=== PATIENT | male | born 1965 | race African-American/Black ===

== ENCOUNTER 2017-02-25 15:54 | Inpatient (IN) | payer OTHER ==
[2017-02-25 17:59] VITALS: BMI 27.8
--- NOTE | 2017-02-25 18:52 | HP ---
CIWA Score - CIWA Score Nausea/Vomitin-Mild Nausea/No Vomiting Muscle Tremors: 4-Moderate,w/Arms Extend Anxiety: 4-Mod. Anxious/Guarded Agitation: 4-Moderately Restless Paroxysmal Sweats: 1-Minimal Palms Moist Orientation: 0-Oriented Tacttile Disturbances: 0-None Auditory Disturbances: 0-None Visual Disturbances: 0-None Headache: 1-Very Mild CIWA-Ar Total Score: 15 Admission ROS BHS - HPI Chief Complaint: WITHDRAWAL SX Allergies/Adverse Reactions: Allergies Allergy/AdvReac Type Severity Reaction Status Date / Time No Known Allergies Allergy Verified 02/25/17 18:09 History of Present Illness: 51 YEARS OLD YEARS OLD MALE WITH LONG HISTORY OF ALCOHOL COCAINE MARIJUANA DEPENDENCE DENIES MEDICAL ISSUE HAS BIPOLAR II IS ADMITTED TO DETOX FELL 02/21/17 MULTIPLE SKIN ABRASION LEFT ELBOW AND RIGHT FORE HEAD TREATED AT MAX MEADOWS, NEGATIVE CT HEAD Exam Limitations: No Limitations - Ebola screening Have you traveled outside of the country in the last 21 days: No Have you had contact with anyone from an Ebola affected area: No Have you been sick,other than usual withdrawal symptoms: No Do you have a fever: No - Review of Systems Constitutional: Chills, Changes in sleep, Weight Stable EENT: reports: No Symptoms Reported Respiratory: reports: No Symptoms reported Cardiac: reports: No Symptoms Reported GI: reports: Nausea, Poor Fluid Intake, Abdominal cramping : reports: No Symptoms Reported Musculoskeletal: reports: No Symptoms Reported Integumentary: reports: Bruising (LEFT ELBOW RIGHT FORE HEAD FELL 02/21 TREATED IN MAX MEADOWS NEGATIVE CT HEAD) Neuro: reports: Tremors Endocrine: reports: No Symptoms Reported Hematology: reports: No Symptoms Reported Psychiatric: reports: Judgement Intact, Orientated x3, Anxious, Depressed Other Systems: Reviewed and Negative Patient History - Patient Medical History Hx Anemia: No Hx Asthma: No Hx Chronic Obstructive Pulmonary Disease (COPD): No Hx Cancer: No Hx Cardiac Disorders: No Hx Congestive Heart Failure: No Hx Hypertension: No Hx Hypercholesterolemia: No Hx Pacemaker: No HX Cerebrovascular Accident: No Hx Seizures: No Hx Diabetes: No Hx Gastrointestinal Disorders: No Hx Liver Disease: No Hx Genitourinary Disorders: No Hx Sexually Transmitted Disorders: No Hx Renal Disease (ESRD): No Hx Thyroid Disease: No Hx Human Immunodeficiency Virus (HIV): No Hx Hepatitis C: No Hx Depression: No Hx Suicide Attempt: Yes ( 2013 ,over dosed on pills) Hx Bipolar Disorder: Yes Hx Schizophrenia: No - Patient Surgical History Past Surgical History: Yes Hx Neurologic Surgery: No Hx Cataract Extraction: No Hx Cardiac Surgery: No Hx Lung Surgery: No Hx Breast Surgery: No Hx Breast Biopsy: No Hx Abdominal Surgery: No Hx Appendectomy: No Hx Cholecystectomy: No Hx Genitourinary Surgery: No Hx Orthopedic Surgery: Yes (multiple fractured toes of the right foot, fx of the right ring finger) Anesthesia Reaction: No - PPD History Previous Implant?: Yes Documented Results: Positive w/proof Implanted On Prior R Admission?: No PPD to be Administered?: No - Smoking Cessation Smoking history: Former smoker Have you smoked in the past 12 months: No Aproximately how many cigarettes per day: 0 Hx Chewing Tobacco Use: No Initiated information on smoking cessation: No - Substance & Tx. History Hx Alcohol Use: Yes Hx Substance Use: Yes Substance Use Type: Alcohol, Cocaine, Marijuana Hx Substance Use Treatment: Yes - Substances Abused Alcohol Route: Oral Frequency: Daily Amount used: liquor- 2 pints. beer- 2 -25oz Age of first use: 12 Date of Last Use: 02/25/17 Cocaine Route: Smoking Frequency: Daily Amount used: 4 bags Age of first use: 22 Date of Last Use: 02/25/17 Marijuana/Hashish Route: Smoking Frequency: Daily Amount used: 1 bag Age of first use: 12 Date of Last Use: 02/25/17 Family Disease History - Family Disease History Family Disease History: Other: Father (), Brother Admission Physical Exam S - Vital Signs Vital Signs: Vital Signs - 24 hr 02/25/17 17:51 Temperature 98.6 F Pulse Rate 73 Respiratory 20 Rate Blood Pressure 129/75 - Physical General Appearance: Yes: Nourished, Appropriately Dressed, Mild Distress, Tremorous, Irritable, Sweating, Anxious HEENTM: Yes: Hearing grossly Normal, Normal ENT Inspection, Normocephalic, Normal Voice Respiratory: Yes: Chest Non-Tender, Lungs Clear, Normal Breath Sounds, No Respiratory Distress, No Accessory Muscle Use Neck: Yes: Supple, Trachea in good position Breast: Yes: Breasts Symetrical Cardiology: Yes: Regular Rhythm, Regular Rate, S1, S2 Abdominal: Yes: Non Tender, Soft Genitourinary: Yes: Within Normal Limits Back: Yes: Normal Inspection Musculoskeletal: Yes: full range of Motion, Gait Steady Extremities: Yes: Normal Inspection, Normal Range of Motion, Non-Tender, Tremors Neurological: Yes: Fully Oriented, Alert, Motor Strength 5/5, Normal Response, Depressed Affect Integumentary: Yes: Warm Lymphatic: Yes: Within Normal Limits - Diagnostic (1) Alcohol dependence with uncomplicated withdrawal Current Visit: Yes Status: Acute (2) Cocaine dependence, uncomplicated Current Visit: Yes Status: Chronic (3) Cannabis dependence, uncomplicated Current Visit: Yes Status: Chronic (4) Positive PPD, treated Current Visit: Yes Status: Resolved (5) Bipolar II disorder Current Visit: Yes Status: Suspected Cleared for Admission [facility] - Detox or Rehab [facility] Level of Care: Medically Managed Detox Regimen/Protocol: Librium [facility] Breath Alcohol Content Breath Alcohol Content: 0 Urine Drug Screen - Results Drug Screen Negative: No Urine Drug Screen Results: THC-Marijuana, LANE-Cocaine, BZO-Benzodiazepines
[2017-02-25] MEDS ORDERED: MENTHOL/PHENOL 1 EACH UD MM PRN (18:57)
[2017-02-25] MEDS ORDERED: MAG HYDROX/AL HYDROX/SIMETH 30 ML UNIT-DOSE CUP PO PRN (18:57)
[2017-02-25] MEDS ORDERED: MAGNESIUM HYDROX 2400MG/30ML ORAL SUSPENSION 30 ML CUP PO PRN (18:57)
[2017-02-25] MEDS ORDERED: diphenhydrAMINE HCL 50 MG CAPSULE PO PRN (18:57)
[2017-02-25] MEDS ORDERED: LOPERAMIDE HCL 2 MG CAPSULE PO PRN (18:57)
[2017-02-25] MEDS ORDERED: hydrOXYzine PAMOATE 50 MG CAPSULE (FP) PO PRN (18:57)
[2017-02-25] MEDS ORDERED: MAGNESIUM CITRATE 300 ML BOTTLE PO PRN (18:57)
[2017-02-25] MEDS ORDERED: IBUPROFEN 400 MG TABLET (FP) PO PRN (18:57)
[2017-02-25] MEDS ORDERED: chlordiazePOXIDE HCL 25 MG CAPSULE PO PRN (18:57)
[2017-02-25] MEDS ORDERED: guaiFENesin/D-METHORPHAN HB 10 ML UNIT-DOSE CUPS PO PRN (18:57)
[2017-02-25] MEDS ORDERED: ACETAMINOPHEN 325 MG TABLET (FP) PO PRN (18:57)
[2017-02-25] MEDS ORDERED: P-EPHED 60MG/TRIPROLIDI 2.5MG TABLET PO PRN (18:57)
[2017-02-25] MEDS: chlordiazePOXIDE HCL 25 MG CAPSULE PO SCH (22:46)
[2017-02-25] MEDS: THIAMINE HCL 100 MG TABLET (FP) PO SCH (22:46)
[2017-02-26] MEDS: chlordiazePOXIDE HCL 25 MG CAPSULE PO SCH ×4 (05:43→22:37)
[2017-02-26] MEDS: PRENATAL VITAMINS W/ FOLIC ACID TABLET (FP) PO SCH (10:27)
[2017-02-26 10:29] LABS: MCH 30.5 pg (25.7-33.7); MCHC 33.8 g/dl (32.0-35.9); MEAN CELL VOLUME 90.2 fl (80-96); MEAN PLT VOLUME 8.5 fl (7.5-11.1); PLATELET COUNT 235 K/MM3 (134-434); RDW 14.3 % (11.9-15.9); WHITE BLOOD COUNT 5.8 K/mm3 (4.0-10.0)
[2017-02-26 11:00] LABS: ALBUMIN 3.3 g/dl (3.4-5.0); ALK PHOS 49 U/L (45-117); ANION GAP 8 (8-16); BILIRUBIN,TOTAL 0.5 mg/dL (0.2-1.0); CALCIUM 8.9 mg/dL (8.5-10.1); CO2 29 mmol/L (21-32); COCKROFT - GAULT 94.32; CREATININE 1.1 mg/dL (0.7-1.3); GLUCOSE,RANDOM 81 mg/dL (74-106); SGOT/AST 28 U/L (15-37); SGPT/ALT 30 U/L (12-78); TOT PROT 6.2 g/dl (6.4-8.2)
[2017-02-26] MEDS: SERTRALINE HCL 50 MG TABLET (FP) PO SCH (12:18)
[2017-02-26] MEDS: BENZTROPINE MESYLATE 1 MG TABLET (FP) PO SCH ×2 (12:18→22:38)
[2017-02-26] MEDS: risperiDONE 1 MG TABLET (FP) PO SCH ×2 (12:18→22:37)
--- NOTE | 2017-02-26 13:49 | CONSULT ---
[facility] Psychiatric Consult - Data Date of interview: 02/26/17 Admission source: [facility] Identifying data: Readmission to [facility] for this 51 y/o AA male seeking detox treatment for alcohol,cocaine and marijuana (K2) dependence.Patient is single,a fahther of one,homeless,unemployed and supported on SSI benefits. Substance Abuse History: - Smoking Cessation. Smoking history: Former smoker. Have you smoked in the past 12 months: No. Aproximately how many cigarettes per day: 0. Hx Chewing Tobacco Use: No. Initiated information on smoking cessation: No. - Substance & Tx. History. Hx Alcohol Use: Yes. Hx Substance Use: Yes. Substance Use Type: Alcohol, Cocaine, Marijuana. Hx Substance Use Treatment: Yes. - Substances Abused. Alcohol. Route: Oral. Frequency: Daily. Amount used: liquor- 2 pints. beer- 2 -25oz. Age of first use: 12. Date of Last Use: 02/25/17. Cocaine. Route: Smoking. Frequency: Daily. Amount used: 4 bags. Age of first use: 22. Date of Last Use: 02/25/17. Marijuana/Hashish. Route: Smoking. Frequency: Daily. Amount used: 1 bag. Age of first use: 12. Date of Last Use: 02/25/17. Confirmed by patient. Medical History: Facial abrasions as a result of a recent fall in the streets () and a history of orthosurgery for multiple metatarsal fractures (right foot) / fracture of fourth finger (right hand). Psychiatric History: Patient admits to a history of multiple psychiatric hospitalizations ([facility]).Diagnosed with Schizoaffective Disorder.Mr Bazan declares that he uses emergency room settings as outlets for medications refills.Has no affiliation with a regular [employer] care provider.Patient states that he used to be prescribed zoloft 100 mg/day + depakote 1000 mg/hs + risperdal 2 mg/hs + cogentin 2 mg/hs.Non compliant for past three months (self-report).Now willing to get back to psychiatric care.Patient reports one suicide attempt ( 2013) via overdose with drugs/self-mutilation. Physical/Sexual Abuse/Trauma History: Patient denies. Additional Comment: Urine Drug Screen Results: THC-Marijuana, LANE-Cocaine, BZO- Benzodiazepines.Noted. Mental Status Exam - Mental Status Exam Alert and Oriented to: Time, Place, Person Cognitive Function: Good Patient Appearance: Unkempt, Disheveled Mood: Withdrawn, Irritable Affect: Mood Congruent Patient Behavior: Fatigued, Cooperative Speech Pattern: Clear Voice Loudness: Normal Thought Process: Goal Oriented Thought Disorder: Not Present Hallucinations: Denies Suicidal Ideation: Denies Homicidal Ideation: Denies Insight/Judgement: Poor Sleep: Fair Appetite: Good Muscle strength/Tone: Normal Gait/Station: Normal Psychiatric Findings - Problem List ([place] 1, 2,3) (1) Alcohol dependence with uncomplicated withdrawal Current Visit: Yes Status: Acute (2) Cannabis dependence, uncomplicated Current Visit: Yes Status: Acute (3) Cocaine dependence, uncomplicated Current Visit: Yes Status: Acute (4) Nicotine dependence Current Visit: Yes Status: Acute Qualifiers: Nicotine product type: cigarettes Substance use status: uncomplicated Qualified Code(s): F17.210 - Nicotine dependence, cigarettes, uncomplicated (5) Drug-induced mood disorder Current Visit: Yes Status: Acute (6) Schizoaffective disorder Current Visit: Yes Status: Acute (7) Positive PPD, treated Current Visit: Yes Status: Resolved - Initial Treatment Plan Initial Treatment Plan: Psychoeducation.Detoxification in progress.Medications : risperdal 1 mg po bid + zoloft 50 mg po daily + depakote 500 mg po hs + cogentin 0.5 mg po bid.Side effects/benefits of each drug are discussed with the patient.He is made aware of the potential for dystonias,dyskinesias, akathisia,akinesia,sexual impotence,galactorrhea/gynecomastia from the use of risperdal,liver dysfunction,blood dyscrasias with utilization of valproate, anticholinergic complicaions (cogentin),sexual dysfunction/suicidal ideation ( zoloft).Patient reports past history of good tolerability/favorable response to these medications.He agrees to resume this regimen.Observation.Will follow valproic acid level.Labs are reviewed.
--- NOTE | 2017-02-26 14:54 | PN ---
[facility] CIWA - CIWA Score Nausea/Vomitin-Mild Nausea/No Vomiting Muscle Tremors: 4-Moderate,w/Arms Extend Anxiety: 4-Mod. Anxious/Guarded Agitation: 2 Paroxysmal Sweats: 3 Orientation: 0-Oriented Tacttile Disturbances: 0-None Auditory Disturbances: 3-Moderate Harsh/Frighten Visual Disturbances: 0-None Headache: 0-None Present CIWA-Ar Total Score: 17 BHS Progress Note (SOAP) Subjective: Body Aches, Tremors, Sweating. Objective: PT. A & O X 3, OBSERVED AMBULATING ON UNIT. NO ACUTE DISTRESS. PT. DENIES CHEST PAIN. 02/26/17 14:52 Vital Signs Temperature 98.2 F 02/26/17 13:03 Pulse Rate 87 02/26/17 13:03 Respiratory Rate 18 02/26/17 13:03 Blood Pressure 133/81 02/26/17 13:03 O2 Sat by Pulse Oximetry (%) Laboratory Tests 02/26/17 02/26/17 02/26/17 07:00 07:00 07:00 WBC 5.8 RBC 4.42 Hgb 13.5 Hct 39.9 MCV 90.2 MCHC 33.8 RDW 14.3 Plt Count 235 MPV 8.5 Sodium 143 Potassium 4.2 Chloride 106 Carbon Dioxide 29 Anion Gap 8 BUN 16 Creatinine 1.1 Creat Clearance w eGFR > 60 Random Glucose 81 Calcium 8.9 Total Bilirubin 0.5 D AST 28 D ALT 30 D Alkaline Phosphatase 49 Total Protein 6.2 L Albumin 3.3 L Valproic Acid < 3.000 L LABS NOTED. Assessment: 02/26/17 14:53 WITHDRAWAL SYMPTOMS. Plan: CONTINUE DETOX. PSYCHIATRIST DR. ALFIE MD MADE AWARE OF VALPROIC ACID LEVEL.
--- NOTE | 2017-02-26 19:23 | EKG ---
Test Reason : Blood Pressure : / mmHG Vent. Rate : 051 BPM Atrial Rate : 051 BPM P-R Int : 142 ms QRS Dur : 088 ms QT Int : 472 ms P-R-T Axes : 039 005 001 degrees QTc Int : 435 ms SINUS BRADYCARDIA OTHERWISE NORMAL ECG WHEN COMPARED WITH ECG OF 25-FEB-2017 19:16, CRITERIA FOR SEPTAL INFARCT ARE NO LONGER PRESENT Confirmed by NAOMIE SERRA MD ([id number]) on 02/26/2017 7:22:49 PM Referred By: Confirmed By:NAOMIE SERRA MD
--- NOTE | 2017-02-26 19:23 | EKG ---
Test Reason : Blood Pressure : / mmHG Vent. Rate : 057 BPM Atrial Rate : 057 BPM P-R Int : 126 ms QRS Dur : 094 ms QT Int : 470 ms P-R-T Axes : 027 019 022 degrees QTc Int : 457 ms SINUS BRADYCARDIA SEPTAL INFARCT , AGE UNDETERMINED ABNORMAL ECG NO PREVIOUS ECGS AVAILABLE Confirmed by NAOMIE SERRA MD ([id number]) on 02/26/2017 7:23:15 PM Referred By: Confirmed By:NAOMIE SERRA MD
[2017-02-26] MEDS: THIAMINE HCL 100 MG TABLET (FP) PO SCH (22:37)
[2017-02-26] MEDS: DIVALPROEX SODIUM 250 MG TABLET E.C. (FP) PO SCH (22:37)
[2017-02-27] MEDS: chlordiazePOXIDE HCL 25 MG CAPSULE PO SCH ×3 (05:43→17:16)
[2017-02-27] MEDS: PRENATAL VITAMINS W/ FOLIC ACID TABLET (FP) PO SCH (10:11)
[2017-02-27] MEDS: risperiDONE 1 MG TABLET (FP) PO SCH ×2 (10:11→22:16)
[2017-02-27] MEDS: SERTRALINE HCL 50 MG TABLET (FP) PO SCH (10:12)
[2017-02-27] MEDS: BENZTROPINE MESYLATE 1 MG TABLET (FP) PO SCH ×2 (10:57→22:16)
[2017-02-27 13:52] LABS: URINE APPEARANCE CLEAR; URINE BILIRUBIN NEGATIVE (NEGATIVE); URINE BLOOD NEGATIVE (NEGATIVE); URINE COLOR LTYELLOW; URINE GLUCOSE (UA) NEGATIVE (NEGATIVE); URINE KETONE NEGATIVE (NEGATIVE); URINE LEUK ESTERASE NEGATIVE (NEGATIVE); URINE NITRITE NEGATIVE (NEGATIVE); URINE PROTEIN NEGATIVE (NEGATIVE); URINE UROBILINOGEN NEGATIVE E.U./dl (0.2-1.0)
--- NOTE | 2017-02-27 14:34 | PN ---
S CIWA - CIWA Score Nausea/Vomitin Muscle Tremors: 4-Moderate,w/Arms Extend Anxiety: 4-Mod. Anxious/Guarded Agitation: 3 Paroxysmal Sweats: No Perspiration Orientation: 0-Oriented Tacttile Disturbances: 1-Very Mild Itch/Numbness Auditory Disturbances: 0-None Visual Disturbances: 0-None Headache: 1-Very Mild CIWA-Ar Total Score: 15 BHS Progress Note (SOAP) Subjective: Nausea, sweating, anxious, tremor Objective: 02/27/17 14:31 Last Vital Signs Temp Pulse Resp BP Pulse Ox 96.1 F L 93 H 18 139/94 02/27/17 13:30 02/27/17 13:30 02/27/17 13:30 02/27/17 13:30 Laboratory Tests 02/26/17 02/26/17 02/26/17 07:00 07:00 07:00 WBC 5.8 RBC 4.42 Hgb 13.5 Hct 39.9 MCV 90.2 MCHC 33.8 RDW 14.3 Plt Count 235 MPV 8.5 Sodium 143 Potassium 4.2 Chloride 106 Carbon Dioxide 29 Anion Gap 8 BUN 16 Creatinine 1.1 Creat Clearance w eGFR > 60 Random Glucose 81 Calcium 8.9 Total Bilirubin 0.5 D AST 28 D ALT 30 D Alkaline Phosphatase 49 Total Protein 6.2 L Albumin 3.3 L Urine Color Urine Appearance Urine pH Urine Protein Urine Glucose (UA) Urine Ketones Urine Blood Urine Nitrite Urine Bilirubin Urine Urobilinogen Ur Leukocyte Esterase Valproic Acid < 3.000 L RPR Titer 02/26/17 02/27/17 07:00 06:00 WBC RBC Hgb Hct MCV MCHC RDW Plt Count MPV Sodium Potassium Chloride Carbon Dioxide Anion Gap BUN Creatinine Creat Clearance w eGFR Random Glucose Calcium Total Bilirubin AST ALT Alkaline Phosphatase Total Protein Albumin Urine Color Ltyellow Urine Appearance Clear Urine pH 5.0 Urine Protein Negative Urine Glucose (UA) Negative Urine Ketones Negative Urine Blood Negative Urine Nitrite Negative Urine Bilirubin Negative Urine Urobilinogen Negative Ur Leukocyte Esterase Negative Valproic Acid RPR Titer Nonreactive Labs noted Assessment: 02/27/17 14:32 Withdrawal symptoms Plan: Continue detox
[2017-02-27] MEDS: THIAMINE HCL 100 MG TABLET (FP) PO SCH (22:15)
[2017-02-27] MEDS: DIVALPROEX SODIUM 250 MG TABLET E.C. (FP) PO SCH (22:16)
[2017-02-27] MEDS: chlordiazePOXIDE 5 MG CAPSULE PO SCH (22:16)
[2017-02-28] MEDS: chlordiazePOXIDE 5 MG CAPSULE PO SCH ×3 (05:40→18:01)
[2017-02-28] MEDS: PRENATAL VITAMINS W/ FOLIC ACID TABLET (FP) PO SCH (10:06)
[2017-02-28] MEDS: risperiDONE 1 MG TABLET (FP) PO SCH ×2 (10:06→22:19)
[2017-02-28] MEDS: BENZTROPINE MESYLATE 1 MG TABLET (FP) PO SCH ×2 (10:06→22:19)
[2017-02-28] MEDS: SERTRALINE HCL 50 MG TABLET (FP) PO SCH (10:06)
--- NOTE | 2017-02-28 13:14 | PN ---
BHS Progress Note (SOAP) Subjective: Sweating,interrupted sleep,restless. Objective: 02/28/17 13:14 Vital Signs - 8 hr 02/28/17 02/28/17 06:10 09:51 Temperature 97.3 F L 97.2 F L Pulse Rate 67 65 Respiratory 18 18 Rate Blood Pressure 132/94 131/91 Laboratory Last Values WBC 5.8 K/mm3 (4.0-10.0) 02/26/17 07:00 RBC 4.42 M/mm3 (4.00-5.60) 02/26/17 07:00 Hgb 13.5 GM/dL (11.7-16.9) 02/26/17 07:00 Hct 39.9 % (35.4-49) 02/26/17 07:00 MCV 90.2 fl (80-96) 02/26/17 07:00 MCHC 33.8 g/dl (32.0-35.9) 02/26/17 07:00 RDW 14.3 % (11.9-15.9) 02/26/17 07:00 Plt Count 235 K/MM3 (134-434) 02/26/17 07:00 MPV 8.5 fl (7.5-11.1) 02/26/17 07:00 Sodium 143 mmol/L (136-145) 02/26/17 07:00 Potassium 4.2 mmol/L (3.5-5.1) 02/26/17 07:00 Chloride 106 mmol/L (98-107) 02/26/17 07:00 Carbon Dioxide 29 mmol/L (21-32) 02/26/17 07:00 Anion Gap 8 (8-16) 02/26/17 07:00 BUN 16 mg/dL (7-18) 02/26/17 07:00 Creatinine 1.1 mg/dL (0.7-1.3) 02/26/17 07:00 Creat Clearance w eGFR > 60 (>60) 02/26/17 07:00 Random Glucose 81 mg/dL (74-106) 02/26/17 07:00 Calcium 8.9 mg/dL (8.5-10.1) 02/26/17 07:00 Total Bilirubin 0.5 mg/dL (0.2-1.0) D 02/26/17 07:00 AST 28 U/L (15-37) D 02/26/17 07:00 ALT 30 U/L (12-78) D 02/26/17 07:00 Alkaline Phosphatase 49 U/L (45-117) 02/26/17 07:00 Total Protein 6.2 g/dl (6.4-8.2) L 02/26/17 07:00 Albumin 3.3 g/dl (3.4-5.0) L 02/26/17 07:00 Urine Color Ltyellow 02/27/17 06:00 Urine Appearance Clear 02/27/17 06:00 Urine pH 5.0 (5.0-8.0) 02/27/17 06:00 Ur Specific [place] 1.020 (1.005-1.025) 02/27/17 06:00 Urine Protein Negative (NEGATIVE) 02/27/17 06:00 Urine Glucose (UA) Negative (NEGATIVE) 02/27/17 06:00 Urine Ketones Negative (NEGATIVE) 02/27/17 06:00 Urine Blood Negative (NEGATIVE) 02/27/17 06:00 Urine Nitrite Negative (NEGATIVE) 02/27/17 06:00 Urine Bilirubin Negative (NEGATIVE) 02/27/17 06:00 Urine Urobilinogen Negative E.U./dl (0.2-1.0) 02/27/17 06:00 Ur Leukocyte Esterase Negative (NEGATIVE) 02/27/17 06:00 Valproic Acid < 3.000 ug/ml (50-100) L 02/26/17 07:00 RPR Titer Nonreactive (NONREACTIVE) 02/26/17 07:00 labs noted Assessment: 02/28/17 13:14 Withdrawal sx Plan: Continue detox
[2017-02-28] MEDS: DIVALPROEX SODIUM 250 MG TABLET E.C. (FP) PO SCH (22:19)
[2017-02-28] MEDS: chlordiazePOXIDE HCL 10 MG CAPSULE PO SCH (22:19)
[2017-02-28] MEDS: THIAMINE HCL 100 MG TABLET (FP) PO SCH (22:19)
[2017-03-01] MEDS: chlordiazePOXIDE HCL 10 MG CAPSULE PO SCH (05:19)
[2017-03-01] MEDS: PRENATAL VITAMINS W/ FOLIC ACID TABLET (FP) PO SCH (09:24)
[2017-03-01] MEDS: BENZTROPINE MESYLATE 1 MG TABLET (FP) PO SCH (09:25)
[2017-03-01] MEDS: risperiDONE 1 MG TABLET (FP) PO SCH (09:25)
[2017-03-01] MEDS: SERTRALINE HCL 50 MG TABLET (FP) PO SCH (09:25)
[2017-03-01 09:36] VITALS: BP 127/83; PULSE 83; TEMP 98.1
--- NOTE | 2017-03-01 12:35 | DS ---
[facility] Detox Discharge Summary Admission Date: 02/25/17 Discharge Date: 03/01/17 - History Present History: Alcohol Dependence, Cannabis Dependence, Cocaine Dependence Additional Comments: PT. ADVISED TO FOLLOW-UP WITH [facility] AFTER DISCHARGE FROM DETOX FOR GENERAL MEDICAL ASSESSMENT. Pertinent Past History: Bipolar Disorder, History of Positive PPD (Treated). - Physical Exam Results Vital Signs: Vital Signs Temperature 98.1 F 03/01/17 09:35 Pulse Rate 83 03/01/17 09:35 Respiratory Rate 18 03/01/17 09:35 Blood Pressure 127/83 03/01/17 09:35 O2 Sat by Pulse Oximetry (%) Pertinent Admission Physical Exam Findings: WITHDRAWAL SYMPTOMS. Laboratory Tests 02/26/17 02/26/17 02/26/17 07:00 07:00 07:00 WBC 5.8 RBC 4.42 Hgb 13.5 Hct 39.9 MCV 90.2 MCHC 33.8 RDW 14.3 Plt Count 235 MPV 8.5 Sodium 143 Potassium 4.2 Chloride 106 Carbon Dioxide 29 Anion Gap 8 BUN 16 Creatinine 1.1 Creat Clearance w eGFR > 60 Random Glucose 81 Calcium 8.9 Total Bilirubin 0.5 D AST 28 D ALT 30 D Alkaline Phosphatase 49 Total Protein 6.2 L Albumin 3.3 L Urine Color Urine Appearance Urine pH Ur Specific [place] Urine Protein Urine Glucose (UA) Urine Ketones Urine Blood Urine Nitrite Urine Bilirubin Urine Urobilinogen Ur Leukocyte Esterase Valproic Acid < 3.000 L RPR Titer 02/26/17 02/27/17 07:00 06:00 WBC RBC Hgb Hct MCV MCHC RDW Plt Count MPV Sodium Potassium Chloride Carbon Dioxide Anion Gap BUN Creatinine Creat Clearance w eGFR Random Glucose Calcium Total Bilirubin AST ALT Alkaline Phosphatase Total Protein Albumin Urine Color Ltyellow Urine Appearance Clear Urine pH 5.0 Ur Specific [place] 1.020 Urine Protein Negative Urine Glucose (UA) Negative Urine Ketones Negative Urine Blood Negative Urine Nitrite Negative Urine Bilirubin Negative Urine Urobilinogen Negative Ur Leukocyte Esterase Negative Valproic Acid RPR Titer Nonreactive LABS NOTED. - Treatment Hospital Course: Detox Protocol Followed, Detoxed Safely, Responded well, Discharged Condition Good Patient has Accepted a Rehab Referral to: PT. GOING HOME AT THIS TIME; WILL PURSUE ADMISSION TO REHAB AT LATER TIME. - Medication Discharge Medications: Ambulatory Orders Benztropine Mesylate [Cogentin -] 2 mg PO BID 06/30/16 Sertraline HCl [Zoloft -] 200 mg PO HS 06/30/16 Risperidone [Risperdal -] 2 mg PO HS #30 tablet 07/01/16 Divalproex Sodium [Depakote ER] 1,000 mg PO HS 02/25/17 Benztropine Mesylate [Cogentin -] 1 mg PO HS #30 tablet 02/26/17 Divalproex [Depakote -] 500 mg PO HS #60 tablet.ec 02/26/17 Risperidone [Risperdal] 2 mg PO HS #30 tablet 02/26/17 Sertraline HCl [Zoloft -] 50 mg PO DAILY #30 tablet 02/26/17 - Diagnosis (1) Alcohol dependence with uncomplicated withdrawal Status: Acute (2) Cannabis dependence, uncomplicated Status: Acute (3) Cocaine dependence, uncomplicated Status: Acute (4) Drug-induced mood disorder Status: Acute (5) Bipolar II disorder Status: Suspected (6) Schizoaffective disorder Status: Chronic Qualifiers: Schizoaffective disorder type: unspecified Qualified Code(s): F25.9 - Schizoaffective disorder, unspecified - AMA Did Patient Leave Against Medical Advice: No
== END 2017-03-01 09:41 | disposition home or self-care (01) | DRG 774 ==
LOC: YASAS 15:54 → Y3N 18:14
PROVIDERS: ADMIT Internal Medicine; ATTEND Internal Medicine
PROC: HZ2ZZZZ Detoxification Services for Substance Abuse Treatment (ICD-10-PCS; principal; 2017-03-01)
DX: F10.230 Alcohol dependence with withdrawal, uncomplicated (principal); F14.20 Cocaine dependence, uncomplicated; F12.20 Cannabis dependence, uncomplicated; F19.24 Other psychoactive substance dependence with psychoactive substance-induced mood disorder; F31.81 Bipolar II disorder; F25.9 Schizoaffective disorder, unspecified; R76.11 Nonspecific reaction to tuberculin skin test without active tuberculosis; Z59.0 Homelessness
CPT/HCPCS: 36415; 80053; 80164; 81003; 85027; 86593; 93005; 93010; J2794